=== PATIENT | male | born 1960 | race Caucasian/White ===

== ENCOUNTER 2021-11-09 20:14 | Emergency (ER) | payer SELFPAY ==
[~2021-11-09] VITALS: Ht 172.7 cm; Wt 72.6 kg
--- NOTE | 2021-11-09 20:19 | NUR ---
PT OFFLOADED TO [facility]
[2021-11-09 20:38] VITALS: BP 126/84
--- NOTE | 2021-11-10 00:39 | NUR ---
PT W/C ASSISTED TO BED #2
--- NOTE | 2021-11-10 00:40 | NUR ---
TAKEN TO BED 2 FROM LOBBY VIA W/C WITH C/O LEG PAIN. PT STATES "I WALKED A LOT TODAY., PT IS HOMELESS
[2021-11-10] MEDS ORDERED: KETOROLAC 60 MG/2 ML VIAL IM ONE (01:10)
[2021-11-10] MEDS ORDERED: BACITRACIN OINT 500 UNITS/GM PKT TP ONE (01:20)
[2021-11-10] MEDS ORDERED: IBUP-2213 PO (01:36)
--- NOTE | 2021-11-10 01:44 | NUR ---
Patient discharged with v/s stable. Written and verbal after care instructions given and explained. Patient alert, oriented and verbalized understanding of instructions. All questions addressed prior to discharge. ID band removed. Patient advised to follow up with PMD. Rx of MOTRIN given. Patient educated on indication of medication including possible reaction and side effects. Opportunity to ask questions provided and answered.
== END 2021-11-10 01:44 | disposition home or self-care (01) ==
LOC: MED 20:14
DX: S80.211A Abrasion, right knee, initial encounter (principal); M79.605 Pain in left leg; Z98.890 Other specified postprocedural states; W19.XXXA Unspecified fall, initial encounter; Y93.89 Activity, other specified; Y92.89 Other specified places as the place of occurrence of the external cause; Y99.8 Other external cause status
CPT/HCPCS: 96372; 99283; J1885